=== PATIENT | male | born 1930 | race Caucasian/White ===

== ENCOUNTER 2018-09-12 08:05 | Emergency (ER) | payer OTHER ==
[~2018-09-12] VITALS: Ht 177.8 cm; Wt 81.6 kg
[2018-09-12 08:06] VITALS: BP_SYST 129
[2018-09-12 08:41] LABS: BASOPHILS # (AUTO) 0.1 K/uL (0.0-0.2); BASOPHILS % (AUTO) 0.6 % (0.0-2.0); EOSINOPHILS # (AUTO) 0.1 K/uL (0.0-0.4); HEMATOCRIT 36.3 % (36-54); LYMPHOCYTES # (AUTO) 1.8 K/uL (1.0-5.5); LYMPHOCYTES % (AUTO) 18.2 % (20.5-51.5); MEAN CORPUSCULAR HEMOGLOBIN 32 pg (27-31); MEAN CORPUSCULAR HGB CONC 33 % (32-36); MEAN CORPUSCULAR VOLUME 96 fL (79.0-98.0); MONOCYTES % (AUTO) 10.4 % (1.7-9.3); NEUTROPHILS # (AUTO) 6.7 K/uL (1.8-7.7); NEUTROPHILS % (AUTO) 69.8 % (40.0-70.0); PLATELET COUNT (AUTO) 299 K/uL (130-430); RED BLOOD CELL COUNT(AUTO) 3.77 MIL/uL (4.2-6.2); RED CELL DISTRIBUTION WIDTH 16.7 % (9.0-15.0); WHITE BLOOD COUNT (AUTO) 9.7 K/uL (4.8-10.8)
[2018-09-12 08:50] LABS: ANION GAP 8 (5-15); CALCIUM 8.6 mg/dL (8.4-11.0); CHLORIDE 102 mmol/L (98-107); CREATININE 1.34 mg/dL (0.55-1.30); GLUCOSE 129 mg/dL (70-99); INR 1.1 (0.80-1.20); PROTHROMBIN TIME 10.9 SECS (9.5-12.5); SODIUM SERUM 139 mmol/L (136-145); UREA NITROGEN, BLOOD 22 mg/dL (8-21)
[2018-09-12] MEDS ORDERED: LIDOCAINE 1%, 20 ML MDV 20 ML ONE (08:52)
[2018-09-12 08:54] LABS: ALANINE AMINOTRANSFERASE 69 U/L (12-78); ALBUMIN 2.4 g/dL (3.4-4.8); ASPARTATE AMINOTRANSFERASE 88 U/L (10-37); TOTAL BILIRUBIN 0.9 mg/dL (0.0-1.0)
[2018-09-12] MEDS ORDERED: BACITRACIN 1 GM OINT TP ONE (09:30)
[2018-09-12] MEDS ORDERED: BICA50TA PO (09:38)
[2018-09-12] MEDS ORDERED: AMIO200T3 PO (09:38)
[2018-09-12] MEDS ORDERED: ACET325T53 PO (09:38)
[2018-09-12] MEDS ORDERED: MELA3TAB PO (09:38)
[2018-09-12] MEDS ORDERED: RAMI10CA32 PO (09:38)
[2018-09-12] MEDS ORDERED: LIP20 PO (09:38)
[2018-09-12] MEDS ORDERED: ASPI-1153 PO (09:38)
[2018-09-12] MEDS ORDERED: LEVO75TA7 PO (09:38)
[2018-09-12] MEDS ORDERED: DUTA0.5C PO (09:38)
[2018-09-12] MEDS ORDERED: SER25 PO ×2 (09:38)
[2018-09-12] MEDS ORDERED: DIVA125C PO (09:38)
[2018-09-12] MEDS ORDERED: TAMS-11 PO (09:38)
[2018-09-12] MEDS ORDERED: TRAV2.5D EACH EYE (09:38)
[2018-09-12] MEDS ORDERED: SYN50 PO (09:38)
[2018-09-12] MEDS ORDERED: METO25TA6 PO (09:38)
[2018-09-12] MEDS ORDERED: POTASSIUM CHLORIDE 20 MEQ/PKT PACKET PO ONE (10:15)
[2018-09-12 15:00] VITALS: BP_SYST 115
[2018-09-12] MEDS ORDERED: BACITRACIN ZINC 15 GM TOPICAL OINTMENT TP SCH (21:00)
== END 2018-09-12 15:00 | disposition short-term general hospital (02) ==
LOC: SED 08:05
DX: S06.309A Unspecified focal traumatic brain injury with loss of consciousness of unspecified duration, initial encounter (principal); W18.09XA Striking against other object with subsequent fall, initial encounter; Y93.89 Activity, other specified; Y92.89 Other specified places as the place of occurrence of the external cause; Y99.8 Other external cause status
CPT/HCPCS: 36415; 70450; 71045; 80053; 85025; 85610; 93005; 99291; J2001